=== PATIENT | male | born 1970 | race Caucasian/White ===

== ENCOUNTER → 2018-05-08 | Outpatient (CLI) | payer BC ==
[2018-05-08 14:19] LABS: Appearance,BF Bloody; Nucleated Cells, Body Fluid 36500 /uL; RBC, Body Fluid 77500 /uL
[2018-05-08 14:21] LABS: Mononuclear WBC,Body Fluid 8 %; Polynuclear WBC,Body Fluid 92 %; Total Cells Counted,Body Fluid 100
== END ==
LOC: LABWHC1 09:54
PROVIDERS: ATTEND Orthopaedic Surgery
DX: Z48.89 Encounter for other specified surgical aftercare (principal); M25.562 Pain in left knee; M25.462 Effusion, left knee; M17.12 Unilateral primary osteoarthritis, left knee; S83.242D Other tear of medial meniscus, current injury, left knee, subsequent encounter; Z98.890 Other specified postprocedural states
CPT/HCPCS: 87070; 87075; 87205; 89050; 89060

== ENCOUNTER 2018-05-19 12:41 | Emergency (ER) | payer BC ==
[2018-05-19 13:51] VITALS: TEMP 98.2
[2018-05-19 16:21] LABS: Basophils % (A) 0 %; Eosinophils # (A) 0.2 k/uL (0-0.7); Eosinophils % (A) 2 %; HCT 38.9 % (39.0-53.0); HGB 12.7 gm/dL (13.0-17.5); Lymphocytes # (A) 1.3 k/uL (1.0-4.8); Lymphocytes % (A) 14 %; MCH 29.4 pg (25.0-35.0); MCHC 32.7 g/dL (31.0-37.0); MCV 89.8 fL (80.0-100.0); Mean Platelet Volume 6.1; Monocytes # (A) 0.5 k/uL (0-1.0); Monocytes % (A) 5 %; Neutrophils # (A) 7.2 k/uL (1.3-7.7); Neutrophils % (A) 76 %; RBC 4.33 m/uL (4.30-5.90); RDW 12.6 % (11.5-15.5); WBC 9.5 k/uL (3.8-10.6)
[2018-05-19 16:27] LABS: Prothrombin Time 10.8 sec (9.0-12.0)
[2018-05-19 16:29] LABS: Platelet Count 1094 k/uL (150-450)
[2018-05-19 16:30] LABS: ALT 58 U/L (21-72); AST 27 U/L (17-59); Albumin 4.1 g/dL (3.5-5.0); Alkaline Phosphatase 76 U/L (38-126); Anion Gap 11 mmol/L; Blood Urea Nitrogen 15 mg/dL (9-20); Calcium 9.7 mg/dL (8.4-10.2); Carbon Dioxide 27 mmol/L (22-30); Chloride 102 mmol/L (98-107); Glucose 93 mg/dL (74-99); Potassium 4.9 mmol/L (3.5-5.1); Sodium 140 mmol/L (137-145); Total Bilirubin 0.5 mg/dL (0.2-1.3); Total Protein 7.7 g/dL (6.3-8.2)
[2018-05-19] MEDS ORDERED: SODIUM CHLORIDE 0.9% 1,000 ML IV ONE (17:20)
--- NOTE | 2018-05-19 17:26 | ED ---
Recheck HPI - General Chief Complaint: Recheck/Abnormal Lab/Rx Stated Complaint: Critically low platelets, Abnormal Labs Time Seen by Provider: 05/19/18 17:08 Source: patient, RN notes reviewed, old records reviewed Mode of arrival: ambulatory Limitations: no limitations - History of Present Illness Initial Comments: 47-year-old male presenting for evaluation of elevated platelets. Patient was sent in the orthopedic surgeon with critical high platelet level. Patient has been dealing with some effusion in the left knee status post arthroscopic procedure approximately one month ago. His had arthrocentesis performed, work up with orthopedic surgery. Patient's had outpatient labs obtained today. This showed a platelet level greater than thousand. Patient has no chest pain or dyspnea. No abdominal pain. No nausea vomiting. No fever or chills. He does note swelling the left knee, no warmth or redness. No calf tenderness. No focal weakness or numbness. - Related Data Home Medications Medication Instructions Recorded Confirmed HYDROcodone/APAP 5-325MG [Kennedy 0.5 - 1 tab PO HS PRN 05/19/18 05/19/18 5-325] Ibuprofen [Motrin Ib] 400 mg PO Q6H PRN 05/19/18 05/19/18 Allergies Allergy/AdvReac Type Severity Reaction Status Date / Time No Known Allergies Allergy Verified 05/19/18 17:21 Review of Systems ROS Statement: Those systems with pertinent positive or pertinent negative responses have been documented in the HPI. ROS Other: All systems not noted in ROS Statement are negative. Past Medical History Past Medical History: No Reported History History of Any Multi-Drug Resistant Organisms: None Reported Past Surgical History: Orthopedic Surgery Past Psychological History: No Psychological Hx Reported Smoking Status: Never smoker Past Alcohol Use History: Daily Past Drug Use History: None Reported General Exam Limitations: no limitations General appearance: alert, in no apparent distress Head exam: Present: atraumatic, normocephalic Eye exam: Present: normal appearance, PERRL, EOMI ENT exam: Present: normal exam, normal oropharynx Neck exam: Present: normal inspection. Absent: tenderness, meningismus Respiratory exam: Present: normal lung sounds bilaterally. Absent: respiratory distress, wheezes Cardiovascular Exam: Present: regular rate, normal rhythm GI/Abdominal exam: Present: soft. Absent: distended, tenderness, guarding Extremities exam: Present: other (Left knee effusion, no warmth, no erythema, bandage to the lateral aspect status post arthrocentesis.). Absent: calf tenderness Neurological exam: Present: alert, oriented X3, CN II-XII intact. Absent: motor sensory deficit Psychiatric exam: Present: normal affect, normal mood Skin exam: Present: warm, dry, intact. Absent: cyanosis, diaphoretic Course Vital Signs 05/19/18 05/19/18 05/19/18 13:46 17:40 18:00 Temperature 98.2 F Pulse Rate 125 H 92 108 H Respiratory 16 20 20 Rate Blood Pressure 128/86 131/98 127/89 O2 Sat by Pulse 97 97 97 Oximetry 05/19/18 05/19/18 19:00 20:00 Temperature 98.2 F Pulse Rate 94 96 Respiratory 18 18 Rate Blood Pressure 135/88 134/90 O2 Sat by Pulse 98 98 Oximetry Medical Decision Making - Medical Decision Making 47-year-old male presenting with elevated platelets. This was obtained on an outpatient lab test. Patient has been dealing with recurrent pleural effusion on the left status post arthroscopic procedure. Patient was sent in for evaluation of elevated platelets. I did review asked medical record which included hemorrhagic arthrocentesis from approximately 2 weeks ago. Patient has stable hemoglobin, platelets are elevated on redraw at 1094 which is down trending from outpatient study. Patient also had an elevated ESR and outpatient testing at 89. Ultrasound is obtained of the left leg which is negative for DVT. Chest x-ray negative for any acute cardiopulmonary disease. Patient's symptoms are ongoing and unchanged. He is afebrile with a normal white count. I have very low suspicion for infection in this knee. Platelet count is likely reactive secondary to hemorrhagic left knee effusion. I did discuss case with orthopedics [employer] chief Dr. Alonzo, he indicated that this was a miscommunication, initial concern was that the patient's platelets were very low rather than elevated. We agreed that this patient can follow up as an outpatient, he's given outpatient contact information to his primary care doctor. We will also call orthopedics in the morning for reevaluation. He will continue to monitor for fever, worsening pain and left knee, worsening swelling or erythema. - Lab Data Result diagrams: 05/19/18 16:00 05/19/18 16:00 Lab Results 05/19/18 05/19/18 05/19/18 Range/Units 16:00 16:00 16:00 WBC 9.5 (3.8-10.6) k/uL RBC 4.33 (4.30-5.90) m/uL Hgb 12.7 L (13.0-17.5) gm/dL Hct 38.9 L (39.0-53.0) % MCV 89.8 (80.0-100.0) fL MCH 29.4 (25.0-35.0) pg MCHC 32.7 (31.0-37.0) g/dL RDW 12.6 (11.5-15.5) % Plt Count 1094 H* (150-450) k/uL Neutrophils % 76 % Lymphocytes % 14 % Monocytes % 5 % Eosinophils % 2 % Basophils % 0 % Neutrophils # 7.2 (1.3-7.7) k/uL Lymphocytes # 1.3 (1.0-4.8) k/uL Monocytes # 0.5 (0-1.0) k/uL Eosinophils # 0.2 (0-0.7) k/uL Basophils # 0.0 (0-0.2) k/uL PT 10.8 (9.0-12.0) sec INR 1.0 (<1.2) Sodium 140 (137-145) mmol/L Potassium 4.9 (3.5-5.1) mmol/L Chloride 102 (98-107) mmol/L Carbon Dioxide 27 (22-30) mmol/L Anion Gap 11 mmol/L BUN 15 (9-20) mg/dL Creatinine 0.86 (0.66-1.25) mg/dL Est GFR (CKD-EPI)AfAm >90 (>60 ml/min/1.73 sqM) Est GFR (CKD-EPI)NonAf >90 (>60 ml/min/1.73 sqM) Glucose 93 (74-99) mg/dL Calcium 9.7 (8.4-10.2) mg/dL Total Bilirubin 0.5 (0.2-1.3) mg/dL AST 27 (17-59) U/L ALT 58 (21-72) U/L Alkaline Phosphatase 76 (38-126) U/L Total Protein 7.7 (6.3-8.2) g/dL Albumin 4.1 (3.5-5.0) g/dL Urine Color Urine Appearance (Clear) Urine pH (5.0-8.0) Ur Specific [place] (1.001-1.035) Urine Protein (Negative) Urine Glucose (UA) (Negative) Urine Ketones (Negative) Urine Blood (Negative) Urine Nitrite (Negative) Urine Bilirubin (Negative) Urine Urobilinogen (<2.0) mg/dL Ur Leukocyte Esterase (Negative) 05/19/18 Range/Units 18:15 WBC (3.8-10.6) k/uL RBC (4.30-5.90) m/uL Hgb (13.0-17.5) gm/dL Hct (39.0-53.0) % MCV (80.0-100.0) fL MCH (25.0-35.0) pg MCHC (31.0-37.0) g/dL RDW (11.5-15.5) % Plt Count (150-450) k/uL Neutrophils % % Lymphocytes % % Monocytes % % Eosinophils % % Basophils % % Neutrophils # (1.3-7.7) k/uL Lymphocytes # (1.0-4.8) k/uL Monocytes # (0-1.0) k/uL Eosinophils # (0-0.7) k/uL Basophils # (0-0.2) k/uL PT (9.0-12.0) sec INR (<1.2) Sodium (137-145) mmol/L Potassium (3.5-5.1) mmol/L Chloride (98-107) mmol/L Carbon Dioxide (22-30) mmol/L Anion Gap mmol/L BUN (9-20) mg/dL Creatinine (0.66-1.25) mg/dL Est GFR (CKD-EPI)AfAm (>60 ml/min/1.73 sqM) Est GFR (CKD-EPI)NonAf (>60 ml/min/1.73 sqM) Glucose (74-99) mg/dL Calcium (8.4-10.2) mg/dL Total Bilirubin (0.2-1.3) mg/dL AST (17-59) U/L ALT (21-72) U/L Alkaline Phosphatase (38-126) U/L Total Protein (6.3-8.2) g/dL Albumin (3.5-5.0) g/dL Urine Color Yellow Urine Appearance Clear (Clear) Urine pH 5.5 (5.0-8.0) Ur Specific [place] 1.017 (1.001-1.035) Urine Protein Negative (Negative) Urine Glucose (UA) Negative (Negative) Urine Ketones 1+ H (Negative) Urine Blood Negative (Negative) Urine Nitrite Negative (Negative) Urine Bilirubin Negative (Negative) Urine Urobilinogen <2.0 (<2.0) mg/dL Ur Leukocyte Esterase Negative (Negative) Disposition Clinical Impression: Reactive thrombocytosis Disposition: HOME SELF-CARE Condition: Good Instructions: Swollen Knee Joint (ED) Additional Instructions: Please return with concerns for infection in left knee including fever, chills, worsening swelling or redness. Is patient prescribed a controlled substance at d/c from ED?: No Referrals: None,Stated [Primary Care Provider] - 1-2 days David Iqbal MD [STAFF PHYSICIAN] - 1-2 days Celina Jennings MD [STAFF PHYSICIAN] - 1-2 days Time of Disposition: 20:10
[2018-05-19 18:29] LABS: Appearance,Urine Clear (Clear); Bilirubin,Urine Negative (Negative); Blood,Urine Negative (Negative); Color,Urine Yellow; Glucose,Urine (UA) Negative (Negative); Ketones,Urine 1+ (Negative); Leukocyte Esterase,Urine Negative (Negative); Nitrite,Urine Negative (Negative); PH, Urine 5.5 (5.0-8.0); Protein,Urine Negative (Negative); Specific Gravity,Urine 1.017 (1.001-1.035); Urobilinogen,Urine <2.0 mg/dL (<2.0)
--- NOTE | 2018-05-19 19:02 | XR ---
EXAMINATION TYPE: XR chest 2V DATE OF EXAM: 05/19/2018 COMPARISON: NONE HISTORY: Chest pain. Abnormal labs. TECHNIQUE: Frontal and lateral views of the chest are obtained. FINDINGS: Overlying EKG leads are seen. There is no focal air space opacity, pleural effusion, or pn eumothorax seen. The cardiac silhouette size is within normal limits. The osseous structures are i ntact. IMPRESSION: No acute cardiopulmonary process.
[2018-05-19 19:08] VITALS: RESP 18
--- NOTE | 2018-05-19 19:38 | US ---
EXAMINATION TYPE: US venous doppler duplex LE LT DATE OF EXAM: 05/19/2018 5:20 PM COMPARISON: NONE CLINICAL HISTORY: Pain. High platelets post op knee surgery. SIDE PERFORMED: Left TECHNIQUE: The lower extremity deep venous system is examined utilizing real time linear array sonog jaime with graded compression, doppler sonography and color-flow sonography. VESSELS IMAGED: External Iliac Vein (EIV) Common Femoral Vein Deep Femoral Vein Greater Saphenous Vein * Femoral Vein Popliteal Vein Small Saphenous Vein * Proximal Calf Veins (* superficial vessels) Left Leg: Negative for DVT No evidence of DVT left leg. Grayscale, color doppler, spectral doppler imaging performed of the deep veins of the left lower extremity. There is normal flow, compressibility, vascular waveforms. IMPRESSION: No ultrasound evidence for acute DVT in the left lower extremity.
[2018-05-19 20:24] VITALS: BP 134/90; PULSE 96
== END 2018-05-19 20:30 | disposition home or self-care (01) ==
LOC: EC 12:41
DX: D47.3 Essential (hemorrhagic) thrombocythemia (principal); M25.462 Effusion, left knee; Z98.890 Other specified postprocedural states
CPT/HCPCS: 36415; 71046; 80053; 81003; 85025; 85610; 96360; 99284

== ENCOUNTER → 2018-05-19 | Outpatient (CLI) | payer BC ==
[2018-05-19 11:43] LABS: Basophils % (A) 1 %; Eosinophils # (A) 0.1 k/uL (0-0.7); Eosinophils % (A) 1 %; HCT 39.9 % (39.0-53.0); HGB 12.3 gm/dL (13.0-17.5); Hypochromasia Slight; Lymphocytes # (A) 1.2 k/uL (1.0-4.8); Lymphocytes % (A) 12 %; MCHC 30.9 g/dL (31.0-37.0); MCV 90.6 fL (80.0-100.0); Mean Platelet Volume 6.5; Monocytes # (A) 0.5 k/uL (0-1.0); Monocytes % (A) 5 %; Neutrophils # (A) 7.6 k/uL (1.3-7.7); Neutrophils % (A) 80 %; RDW 12.3 % (11.5-15.5); WBC 9.6 k/uL (3.8-10.6)
[2018-05-19 11:55] LABS: Platelet Count 1197 k/uL (150-450)
[2018-05-19 12:29] LABS: Erythrocyte Sedimentation Rate 89 mm/hr (0-15)
[2018-05-19 17:26] LABS: Rheumatoid Factor 7 IU/mL (0-15)
[2018-05-19 17:31] LABS: Vitamin D 25 Hydroxy 23.5 ng/mL (30.0-100.0)
[2018-05-19 17:54] LABS: Cyclic Citrullinated Pep IgG NEGATIVE (NEGATIVE)
[2018-05-20 04:35] LABS: Angiotensin-1 Converting Enz. 28 U/L (8-52)
[2018-05-20 05:22] LABS: C Reactive Protein 8.2 mg/dL (0.0-0.8); Calcium 9.7 mg/dL (8.7-10.3); Uric Acid 3.7 mg/dL (3.7-8.7)
[2018-05-20 05:30] LABS: T4, Free (Free Thyroxine) 1.5 ng/dL (0.80-1.80)
[2018-05-20 11:15] LABS: HLA B27 POSITIVE
== END | disposition home or self-care (01) ==
LOC: LABWHC1 10:03
PROVIDERS: ATTEND Orthopaedic Surgery
DX: M25.562 Pain in left knee (principal); M25.462 Effusion, left knee; M17.12 Unilateral primary osteoarthritis, left knee; S83.242D Other tear of medial meniscus, current injury, left knee, subsequent encounter; Z48.89 Encounter for other specified surgical aftercare
CPT/HCPCS: 36415; 80048; 82164; 82306; 82550; 84439; 84443; 84450; 84460; 84550; 85025; 85652; 86038; 86140; 86200; 86431; 86812

== ENCOUNTER → 2021-08-22 | Day surgery (SDC) | payer BC ==
[2021-08-17 12:55] VITALS: BMI 31.4
[~2021-08-22] MED LIST: LACTATED RINGERS 1,000 ML IV SCH; LIDOCAINE 1% INJ 10MG/ML (20 ML MDV) ONE; PROPOFOL 10 MG/ML 20 ML VIAL IV ONE
[2021-08-22 09:16] VITALS: RESP 16; TEMP 97.1
--- NOTE | 2021-08-22 09:48 | P.GSHP ---
History of Present Illness H&P Date: 08/22/21 Chief Complaint: GERD 51-year-old male underwent EGD last January. Patient was found have severe erosive esophagitis. He was started on antiacid therapy. Symptoms have improved since starting antiacids. Biopsies were negative for dysplasia. Short-term follow-up was advised. Past Medical History Past Medical History: GERD/Reflux History of Any Multi-Drug Resistant Organisms: None Reported Past Surgical History: Orthopedic Surgery Additional Past Surgical History / Comment(s): LEFT KNEE-ARTHROSCOPIC. COLONOSCOPY/EGD-01/2021 Past Anesthesia/Blood Transfusion Reactions: No Reported Reaction Smoking Status: Former smoker - Past Family History Mother Family Medical History: No Reported History Medications and Allergies Home Medications Medication Instructions Recorded Confirmed Type Omeprazole [PriLOSEC] 40 mg PO AC-BRKFST #90 cap 01/31/21 08/22/21 Rx Allergies Allergy/AdvReac Type Severity Reaction Status Date / Time No Known Allergies Allergy Verified 08/17/21 12:49 Surgical - Exam Vital Signs Temp Pulse Resp BP Pulse Ox 97.1 F L 89 16 152/84 96 08/22/21 09:15 08/22/21 09:15 08/22/21 09:15 08/22/21 09:15 08/22/21 09:15 Physical exam: General: Well-developed, well-nourished HEENT: Normocephalic, sclerae nonicteric Abdomen: Nontender, nondistended Extremities: No edema Neuro: Alert and oriented Assessment and Plan (1) GERD (gastroesophageal reflux disease) Narrative/Plan: Will proceed with upper endoscopy at this time Current Visit: Yes Status: Acute Code(s): K21.9 - GASTRO-ESOPHAGEAL REFLUX DISEASE WITHOUT ESOPHAGITIS SNOMED Code(s): 059132339
--- NOTE | 2021-08-22 09:56 | P.PCN ---
Date of Procedure: 08/22/21 Procedure(s) Performed: Preoperative Dx: GERD Postoperative Dx: Mild gastritis, hiatal hernia, short segment Cole's esophagus Procedure: EGD with Bx Anesthesia: Sedation Endoscopist: Dr. Laguna Specimens: Antrum, Cole's esophagus Endoscopic Procedure: The patient was on the endoscopy table in the left decubitus position. The Olympus gastroscope was inserted into the oropharynx and passed under direct visualization to the region of the third portion of the duodenum. From that point the scope was slowly withdrawn inspecting all surfaces carefully. There were no neoplastic inflammatory or polypoid lesions throughout the duodenum. The pylorus was widely patent. The stomach was carefully inspected. There was mild gastritis present. A biopsy of the antrum took place to rule out H. pylori. Retroflexion revealed a sliding hiatal hernia. The GE junction was present 2 cm above the diaphragmatic hiatus. The patient's previous esophagitis was resolved. There was a short segment measuring 2 cm of Cole's esophagus. A biopsy of the Cole's took place. The esophagus was then carefully examined. There were no neoplastic inflammatory or polypoid lesions throughout the visualized esophagus. The patient was then taken to the recovery room in stable condition per anesthesia guidelines. Recommendations: Await biopsy results. Continue antiacid therapy. Follow-up EGD 3 years.
[2021-08-22 10:15] VITALS: BP 137/67; PULSE 77
== END ==
LOC: ORWHC2ENDO 08:37
PROVIDERS: ATTEND Surgery
DX: K29.70 Gastritis, unspecified, without bleeding (principal); K44.9 Diaphragmatic hernia without obstruction or gangrene; K22.70 Barrett's esophagus without dysplasia; K21.9 Gastro-esophageal reflux disease without esophagitis; Z87.891 Personal history of nicotine dependence; Z79.899 Other long term (current) drug therapy
CPT/HCPCS: 43239; 88305; J2001; J2704